=== PATIENT | male | born 1990 | race Caucasian/White ===

== ENCOUNTER 2019-09-22 12:55 | Emergency (ER) | payer BC ==
[2019-09-22] MEDS ORDERED: fentaNYL 100 MCG/2 ML SDV IM STA ×2 (13:23→13:52)
[2019-09-22] MEDS ORDERED: Diphtheria,Pertussis(Acell),Tetanus Vaccine 0.5 ML Syringe IM ONE (13:30)
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
[2019-09-22] MEDS ORDERED: ceFAZolin 1 GM Vial IVPUSH ONE (13:41)
[2019-09-22] MEDS: Diphtheria,Pertussis(Acell),Tetanus Vaccine 0.5 ML Syringe ONE ×2 (14:42→14:44)
== END 2019-09-22 14:23 ==
LOC: CC.ED 12:55
DX: S68.122A Partial traumatic metacarpophalangeal amputation of right middle finger, initial encounter (principal); S68.124A Partial traumatic metacarpophalangeal amputation of right ring finger, initial encounter; Z23 Encounter for immunization; W23.0XXA Caught, crushed, jammed, or pinched between moving objects, initial encounter
CPT/HCPCS: 73130; 90471; 90715; 96372; 96374; 99284; J0690; J3010